=== PATIENT | female | born 1965 ===

== ENCOUNTER 2023-06-08 12:53 | Outpatient (REF) | payer OTHER, SELFPAY ==
--- NOTE | ~2023-06-08 | US_ITS ---
EXAMINATION: NONINVASIVE ASSESSMENT OF THE ARTERY OF THE LEFT LOWER EXTREMITY Javier Karimi MD CLINICAL INFORMATION: Peripheral vascular disease. TECHNIQUE: Left lower extremity duplex ultrasound was performed with velocity measurements and waveform analysis in the common femoral artery, profunda femoris artery, proximal mid and distal superficial femoral arteries, popliteal artery and tibial vessels. This study was performed only at rest. COMPARISON: None available. FINDINGS: Velocities in cm/sec and phasicity as well as the presence of plaque are reported below. LEFT LEG: Moderate plaque present in the common femoral artery posteriorly. A tight stenosis is present in the profunda femoris with marked velocity elevation. A tight stenosis is seen in the mid SFA with velocity accelerations to 299 cm/s. Below this level, flow is monophasic. Common Femoral: 199 Profunda Femoris: 308 Proximal SFA: 120 Mid SFA: 299 Distal SFA: 52 Popliteal: 43 Posterior Tibial: 42 Anterior tibial artery: 14.5 Dorsalis pedis: 18.7 US/US arterial duplex LE LT IMPRESSION: Evidence of peripheral vascular disease with tight stenoses present in the profunda femoris and mid SFA with monophasic flow below this level. CT angiography would be useful for further evaluation.
== END 2023-06-08 12:54 | disposition home or self-care (01) ==
LOC: HO.US 12:53
PROVIDERS: PCP Internal Medicine; Visit Provider Psychiatry & Neurology Neurology
DX: I73.9 Peripheral vascular disease, unspecified (principal)
CPT/HCPCS: 93926

== ENCOUNTER 2023-08-04 11:03 | Outpatient (REF) | payer OTHER, SELFPAY ==
[2023-08-04 13:30] LABS: Blood Urea Nitrogen 20 mg/dL (9-16); Estimated Glomerular Filt Rate > 60
== END 2023-08-04 11:04 | disposition home or self-care (01) ==
LOC: HO.LAB 11:03
PROVIDERS: Visit Provider Psychiatry & Neurology Neurology
DX: I73.9 Peripheral vascular disease, unspecified (principal)
CPT/HCPCS: 36415; 82565; 84520

== ENCOUNTER 2023-08-13 13:49 | Outpatient (REF) | payer OTHER, SELFPAY ==
--- NOTE | ~2023-08-13 | CT_ITS ---
EXAMINATION: CT ANGIOGRAPHY ABDOMEN, PELVIS AND LOWER EXTREMITY RUNOFF WITH CONTRAST CLINICAL INFORMATION: Peripheral arterial disease COMPARISON: None TECHNIQUE: Initial noncontrast localizing hockey scout images were obtained. Timing boluses at the level of the celiac and popliteal arteries were calculated. Subsequently, arterial phase multidetector volumetric imaging was performed through the abdomen, pelvis and bilateral lower extremities following the administration of 100 mL Omnipaque 350 intravenous contrast. No contrast reaction reported Sagittal and coronal reformatted images were obtained on the technologist workstation. After extensive post-processing on a dedicated 3-D workstation, 3-D reformatted images were uploaded to PACS and reviewed as well. This CT examination was performed using dose optimization techniques as appropriate, variously including the following: *Automated exposure control *Adjustment of mA and/or kV according to patient size (this includes techniques or standardized protocols for targeted exams where dose is matched to indication/reason for exam; i.e. extremities or head) *Use of iterative reconstruction technique DLP: 690 mGy-cm FINDINGS: VASCULAR: Heart: Normal in size. No coronary artery calcifications. Abdominal Aorta: Moderate to severe mixed atherosclerotic disease. No dissection or aneurysmal dilation. Normal aortic taper. Mesenteric Arteries: The celiac axis, superior mesenteric artery and inferior mesenteric artery are patent. Renal Artery: Single renal arteries bilaterally. Renal arteries are patent and without stenosis or other vascular anomaly. Right Lower Extremity: Right Common Iliac Artery: Patent. Moderate mixed atherosclerotic disease resulting in no high grade stenosis. Right External Iliac Artery: Patent. Mild non-calcified atherosclerotic disease resulting in no high grade stenosis. Right Internal Iliac Artery: Patent. Common Femoral Artery: Patent. Mild mixed atherosclerotic disease resulting in no high grade stenosis. Superficial Femoral Artery: Patent. Mild mixed atherosclerotic disease resulting in no high grade stenosis. Profunda Femoris: Patent. Popliteal Artery: Patent. Mild mixed atherosclerotic disease resulting in no high grade stenosis. Tibioperoneal Trunk: Patent. Anterior Tibial Artery: Patent. Peroneal Artery: Patent. Posterior Tibial Artery: Patent. Dorsalis Pedis: Patent. Plantar Arch: Patent. Left lower extremity: Left Common Iliac Artery: Patent. Moderate mixed atherosclerotic disease resulting in no high grade stenosis. Left External Iliac Artery: Patent. Mild mixed atherosclerotic disease resulting in no high grade stenosis. Left Internal Iliac Artery: Patent. Common Femoral Artery: Patent. Mild mixed atherosclerotic disease resulting in no high grade stenosis. Superficial Femoral Artery: Severe mixed atherosclerotic disease resulting in multifocal high-grade stenoses in string like opacification. Profunda Femoris: Patent. Popliteal Artery: Patent. Mild mixed atherosclerotic disease resulting in no high grade stenosis. Tibioperoneal Trunk: Patent. Anterior Tibial Artery: Diminutive in caliber and visualized up to the mid to distal tibia fibula, favored to be developmental . Peroneal Artery: Patent. Posterior Tibial Artery: Patent. Dorsalis Pedis: Patent. Plantar Arch: Not well opacified. NONVASCULAR FINDINGS: ABDOMEN/PELVIS: Lung Bases: Scarring versus atelectasis in the lingula. Liver: Homogeneous in attenuation. Normal in size. Gallbladder: Noninflamed. Biliary System: No intrahepatic or extrahepatic biliary dilation. Pancreas: Homogeneous in attenuation. Spleen: Normal in size. Genitourinary: Bilateral kidneys demonstrate symmetric enhancement. No perinephric fluid collection. No renal calculi. No hydroureteronephrosis. Adrenal Glands: Unremarkable. Reproductive: Uterus absent. No solid adnexal masses. Gastrointestinal: The visualized alimentary tract is normal in course. No evidence of obstruction. Appendix: The appendix is seen in its entirety and is unremarkable. Peritoneum: No pneumoperitoneum. No intra-abdominal fluid collection. Lymph Nodes: No pathologically enlarged abdominal or pelvic lymph nodes. Soft Tissues/Musculoskeletal: Multilevel degenerative changes of the lumbar spine. CT/CT angio abd aorta runoff IMPRESSION: VASCULAR: Abdomen/Pelvis: Moderate to severe mixed atherosclerotic disease of the infrarenal aorta. No aneurysm or dissection. Right Lower Extremity: 1. Mild mixed atherosclerotic disease of the iliofemoral vessels without high-grade stenosis. 2. Three-vessel runoff to the foot. 3. Dorsalis pedis and plantar arteries patent. Left Lower Extremity: 1. Mild to mixed atherosclerotic disease of the iliofemoral vessels. 2. High-grade stenoses throughout the superficial femoral artery resulting in string like opacification. 3. Diminutive in caliber anterior tibial artery, likely developmental. 4. Two-vessel runoff to the foot via anterior tibial and peroneal. 5. Dorsalis pedis patent, but plantar arch not well opacified. NONVASCULAR: No acute abdominopelvic findings. Fleischner guidelines were followed.
[2023-08-13] MEDS: iohexoL 350 MG/ML 100 ML INFUS..BTL IV (15:13)
== END 2023-08-13 13:50 | disposition home or self-care (01) ==
LOC: HO.CT 13:49
PROVIDERS: Visit Provider Psychiatry & Neurology Neurology
DX: I73.9 Peripheral vascular disease, unspecified (principal)
CPT/HCPCS: 75635; Q9967

== ENCOUNTER 2025-03-14 15:30 | Outpatient (REF) | payer OTHER, SELFPAY ==
--- OUTSIDE RECORDS SUMMARY | 2025-03-14 16:31 | XMS_ITS | Data Portability ---
Author Organization [place] - [facility], Allergy Address [address] [place] [id number] Care Team Providers Care Airport Operations Specialist Name Role Phone MARIANNA MARTINEZ Primary Care Provider [phone] Assessment No assessment recorded. Plan of Treatment Reminders Order Date Submit Date Provider Last Modified By Organization Details Last Modified Time Details Appointments Establish ed 20 2024 02:40P M ALIZA TAYLOR MD Not available Not available Not available Lab None recorded. Referral None recorded. Procedures None recorded. Surgeries None recorded. Imaging None recorded. Medication Orders None recorded. Patient TargetsNo targets recorded. Patient InstructionsNo instructions recorded. Reason for Referral None Reported. Results Created Date Observation Date Name Description Value Unit Range Abnormal Flag Note LastModifiedBy Organization Detail LastModifiedTime 02/11/20 25 audio gram No observ ation record ed. BARCODE Not Available 2024 10:31:44 Result Notes None recorded. Problems Name Problem SNOMED Code Status Onset Date Resolution Date Notes Provider Name and Address Organization Details Recorded Time Sensorineural hearing loss of bilateral ears 247300510 Active 2024 Marita byrne [place] - [facility] 5 16:05:20 Synkinesis of eyelid 564409524 Active 2024 STEPHANIE PENNINGTON MD [address] [facility], [place], [address] - [facility] 5 16:31:04 Problem Notes None recorded. Procedures Surgical History Date Name Laterality Status Provider Name and Address Organization Details Recorded Time 02/09/2025 Comp Audio with Tymps - 24820 & 23133 completed Marita Dasilva [place] - [facility] 02/09/2025 16:05:13 Imaging Results Imaging Date Name Status LastModified by Organiz ation Details LastModified Time 02/10/2025 audiogram completed BARCODE Information no t available 02/10/2025 10:31:44 Procedure Notes None recorded. Medical Equipment None Reported. Allergies Allergen ID Allergen Name Allergen Category Reaction Reaction Severity Criticality Documentation Date Start Date Code Code System Note Provider Name and Address Organization Details Recorded Time 527904 Celexa medicatio n Not available Not available Not available 02/09/2025 37935 8 RxNorm Shelley byrne [place] - [facility] 15:38:54 Medications Name Sig Start Date Stop Date Status Note LastModified by Organization Details LastModified Time quetiapine 25 mg tablet TAKE 1 TABLET BY MOUTH EVERY NIGHT AT BEDTIME FOR INSOMNIA active Not Available Not Available No t Available atorvastati n 40 mg tablet TAKE 1 TABLET BY MOUTH EVERYDAY AT BEDTIME active Not Available Not Available No t Available cilostazol 100 mg tablet TAKE 1 TABLET BY MOUTH TWICE A DAY active Not Available Not Available No t Available ketoconazol e 2 % shampoo APPLY TO SCALP 2X/WK, LEAVE ON 5 MINUTES THEN WASH OFF active Not Available Not Available No t Available clonazepam 1 mg tablet TAKE 1 TABLET BY MOUTH TWICE A DAY NEEDED active Not Available Not Available No t Available amlodipine 5 mg tablet TAKE 1 TABLET BY MOUTH EVERY DAY active Not Available Not Available No t Available omeprazole 40 mg capsule,del ayed release TAKE 1 CAPSULE BY MOUTH DAILY. TAKE ON AN EMPTY STOMACH, WAIT 30 MIN AND THEN EAT 02/09 completed Not Available Not Available Not Available aspirin 81 mg tablet,nesha yed release TAKE 1 TABLET BY MOUTH EVERY DAY active Not Available Not Available No t Available pantoprazol e 40 mg tablet,nesha yed release TAKE 1 TABLET BY MOUTH EVERY DAY active Not Available Not Available No t Available erythromyci n 5 mg/gram (0.5 %) eye ointment APPLY 1 A SMALL AMOUNT INTO LEFT EYE FOUR TIMES A DAY APPLY TO INCISION SITE FOR 1 WEEK 02/09 completed Not Available Not Available Not Available triamcinolo ne acetonide 0.1 % lotion APPLY TO SCALP TWICE A DAY NEEDED FOR FLARES, DECREASE SYMPTOMS IMPROVE active Not Available Not Available No t Available moxifloxaci n 0.5 % eye drops INSTILL 1 DROP INTO LEFT EYE FOUR TIMES A DAY USE FOR 1 WEEK THEN STOP 02/09 completed Not Available Not Available Not Available Vitals Date Recorded Body height Body weight Provider Name and Address Organization Details Last Updated DateTime 02/09/2025 162.56 cm 12062.63 g Shelley Wallace [place] - [facility] 02/09/2025 16:10:54 Social History None recorded. Functional Status None recorded. Mental Status None recorded. Family History Nothing Reported. Medical History Condition Response Arthritis Y Anxiety Y GERD/Reflux Y High Cholesterol Y Hypertension Y Depression Y Asthma Y Gynecological HistoryNo gynecological history recorded. Obstetrics History GPAL:G 0 P 0 0 0 0 Past Encounters Encounter ID Performer Location Encounter Start Date Encounter Closed Date Diagnosis/Indication Diagnosis SNOMED-CT Code Diagnosis ICD10 Code Diagnosis Note [id number] STEPHANIE PENNINGTON MD [facility] [address] [address] 02/09/2025 15:17:54 02/09/2025 16:30:31 Sensorineural hearing loss of bilateral ears 068329251 H90.3 Audiologic al evaluation results:Ri ght ear:{{Norm al Normal through 2 kHz Mild M oderate* M oderately- severe Sev ere Profou nd}} {{hearing hearing. s loping to a mild slopi ng to a moderate s loping to moderately severe* sl oping to severe slo ping to profound f lat high frequency low frequency mid frequency cookie bite avalos curve}} {{with sen sorineural hearing loss with* cond uctive hearing loss with mixed hearing loss with}} {{excellen t* good fa ir poor no measurable }} word recognitio n.Left ear:{{Norm al Normal through 2 kHz Mild M oderate* M oderately- severe Sev ere Profou nd}} {{hearing hearing. s loping to a mild slopi ng to a moderate s loping to moderately severe* sl oping to severe slo ping to profound f lat high frequency low frequency mid frequency cookie bite avalos curve}} {{with sen sorineural hearing loss with* cond uctive hearing loss with mixed hearing loss with}} {{excellen t* good fa ir poor no measurable }} word recognitio n.Tympanom etry:Right Ear:{{Type A Type A with rounded peak Type A with double peak Type As* Type As with rounded peak Type Ad Type C Type C, shallow & rounded peak Type B Type B with large volume Cou ld not maintain a hermetic seal}}Left Ear:{{Type A* Type A with rounded peak Type A with double peak Type As Type As with rounded peak Type Ad Type C Type C, shallow & rounded peak Type B Type B with large volume Cou ld not maintain a hermetic seal}} Patient's audiogram shows bilateral fairly significan t sensorineu ral hearing loss with {{well maintained * moderate ly reduced po or}} speech discrimina tion. There is enough hearing loss to affect day-to-day hearing performanc e. We discussed in detail the pros and cons of amplificat ion (hearing aids). We discussed the connection between untreated hearing loss and increased risk of dementia, falling and accidents. After full discussion , the patient expressed {{interest * no interest}} in learning more about amplificat ion options.Ac cordingly {{we will set them up for a hearing aid evaluation * I have provided a copy of the audiogram and medical clearance for amplificat ion so the patient can pursue this at their convenienc e I have provided a copy of the audiogram, a list of [facility] hearing aid providers, and medical clearance for amplificat ion so the patient can pursue this at their convenienc e}}. Patient is medically cleared for amplificat ion {{in the right ear in the left ear bilate rally*}}. Synkinesis of eyelid 129 111725 R25.8 Patient has history of left Avalos's palsy and has been left with a fairly significan t synkinesis that affects the left side of her face. She is most bothered by the constant left eyelid squinting that affects her vision. She is interested in learning about options available for treatment of the synkinesis and the ocular squinting. She is interested in meeting with Dr. Taylor in our office to discuss some of these options in more detail, also we will set her up a visit. Health Concerns Section Related Observation LastModified by Organization Detai ls LastModified Time None Recorded Concern Status LastModified by Organization Details LastModified Time None Recorded Advance Directives Directive None Recorded Payers Insurance Date Sequence Insurance Name Policy Number Policy Patterson Covered Member ID Patterson Member ID Guarantor Name 02/09/2025 1 [facility] NET PLAN (MEDICAID HMO) MARISELA Reyes Burton [id number] Delilah Reyes Burton Notes Date Note Type Note Provider Name and Address Organization Details Recorded Time 02/09/2025 text/html Patient comes in for evaluation of hearing loss. Patient has been noticing difficulty hearing in a variety of different listening environments, particularly exacerbated by background noise. Hearing loss has been {{gradual* rapidly progressive}} over a period of {{months years*}}. Patient notes {{no tinnitus* right sided tinnitus left-sided tinnitus nonlocaliz ing tinnitus bilateral tinnitus, right greater than left bilateral tinnitus, left greater than right}}. {{No history of History of*}} {{industrial* [employer] loud music excessive}} noise exposure. Patient comes in for audiometric testing and discussion of possible remedies for hearing loss. In addition, patient had a severe Avalos's palsy back in 2016. Ever since then she has been having troubles with left-sided facial synkinesis. She is particularly troubled by left eye closing when she smiles or chews. She has had Botox injections in the past, but effects were only short-lived. She has had a partial brow lift on the left in the past and has been speaking with a local ophthalmology group about further procedures to remedy her left eyelid droop and squinting. STEPHANIE PENNINGTON MD [address] [place] [address], [phone], [facility] - [facility] 02/09/2025 16:34:01 OBGyn Episode No OBEpisode recorded.
--- OUTSIDE RECORDS SUMMARY | 2025-03-14 16:31 | XMS_ITS | Clinical Summary ---
Author Organization [address] [place] [address] Address [address] [place] [address] Phone Care Team Providers Care Ecotherapist Name Role Phone Aldo Daniels MD Primary Care Provider [phone] Medications amLODIPine (NORVASC) 5 mg tablet TAKE 1 TABLET BY MOUTH EVERY DAY 90 tablet 1 01/19/2025 Active pantoprazole (PROTONIX) 40 mg EC tablet TAKE 1 TABLET BY MOUTH EVERY DAY 90 tablet 1 01/19/2025 Active Encounters Date Type Department Care Team Description 02/20/2025 Telephone Internal Medicine [address] [phone] Aldo Daniels MD PT1(speech&hearing) 02/20/[address] [phone] Aldo Daniels MD PT1(Ophthalmology) from Last 3 Months Surgical History Surgery Date Site/Laterality Comments TUBAL LIGATION PROCEDURE: HISTORICAL TUBAL LIGATION HYSTERECTOMY PROCEDURE: HISTORICAL HYSTERECTOMY COLONOSCOPY 06/12/2020 PROCEDURE: HISTORICAL COLONOSCOPY; COMMENT: polyps UPPER GASTROINTESTINAL ENDOSCOPY 06/12/2020 PROCEDURE: CT UPPER GI ENDOSCOPY PERFORMED; COMMENT: negative, biopsy pending Medical History Medical History Date Comments Allergic rhinitis 01/31/2016 DX:Allergic rh initis Asthma 06/17/2018 DX:Asthma Carpal tunnel syndrome 06/13/2016 DX:Carpal tunnel syndrome Chronic anxiety 12/18/2016 DX:Chronic anxie ty Chronic back pain 09/10/2016 DX:Chronic naeem k pain Chronic hepatitis C (CMS/HCC V24, CMS/HCC V28) 06/08/2018 DX:Chronic hepatitis C (HCC) Degenerative disc disease, lumbar 12/23/2017 DX:Degenerative disc disease, lumbar Depression 07/21/2017 DX:Depression GERD (gastroesophageal reflux disease) 03/18/2016 DX:GERD (gastroesophageal reflux disease) Hyperlipidemia 12/23/2017 DX:Hyperlipidemi a Hypertension 06/17/2018 DX:Hypertension Internal hemorrhoids 03/02/2015 DX:Internal hemorrhoids History of pancreatitis DX:Histo ry of pancreatitis Gastritis DX:Gastritis Tubular adenoma of colon DX:Tubu lar adenoma of colon Family History Relation Name Status Comments Father Mother Social History Tobacco Use Types Packs/Day Years Used Date Smoking Tobacco: Every Day Smokeless Tobacco: Never Alcohol Use Standard Drinks/Week Comments No 0 (1 standard drink = 0.6 oz pur e alcohol) Comments Unknown Sex and Gender Information Value Date Recorded Sex Assigned at Not on file Legal Sex Female 2:16 AM EST Gender Identity Not on file Sexual Orientation Not on file Obstetrics History Last Filed Vital Signs Vital Sign Reading Time Taken Comments Blood Pressure 119/70 01/21/2024 1:46 PM EDT Pulse 92 01/21/2024 1:46 PM EDT Temperature - - Respiratory Rate - - Oxygen Saturation - - Inhaled Oxygen Concentration - - Weight 79.4 kg (175 lb) 01/21/2024 1:46 PM EDT Height 154.9 cm (5' 1 ) 01/21/2024 1:46 PM EDT Body Mass Index 33.07 01/21/2024 1:46 PM EDT Plan of Treatment Upcoming Encounters Date Type Department Care Team (Late st Contact Info) Description 04/13/2025 3:00 PM EDT Office Visit Internal Medicine - [place] [address] [facility] [address] [place] [address] Aldo Daniels MD [address] [facility] [address] [place] [address] Health Maintenance Due Date Last Done Comments DTaP,Tdap,and Td Vaccines (1 - Tdap) 1983 Hepatitis A Vaccines (1 of 2 - Risk 2-dose series) 1983 Cervical Cancer Screening: P ap Smear 1985 Zoster Vaccines (1 of 2) 2014 Pneumococcal Vaccine: 50+ Years (2 of 2 - PPSV23) 02/04/2019 12/10/2018, 07/21/2017 Pneumococcal Vaccine: Pediatrics (0 to 5 Years) and At-Risk Patients (6 to 64 Years) (2 of 2 - PPSV23) 02/04/2019 12/10/2018, 07/21/2017 Cholesterol Screening (Lipid Panel) 10/04/2022 Colorectal Cancer Screening: Colonoscopy 10/04/2022 Depression Screening 10/04/2022 HIV Screening 10/04/2022 Hepatitis C Screening 10/04/2022 Social Influencers of Health Screening 10/04/2022 Hypertension/CHF/CAD Annual BMP Blood Test 10/05/2022 Hepatitis B Vaccines (1 of 3 - Risk 3-dose series) 2024 RSV Immunization Adult Patients (1 - Risk 60-74 years 1-dose series) 2024 COVID-19 Vaccine ( - 2023-2 5 season) 2024 Breast Cancer Screening 03/03/2025 03/03/20 23, 02/27/2022 Influenza Vaccine (Season Ended) 2025 HIB Vaccines Aged Out No longer eligi ble based on patient's age to complete this topic HPV Vaccines Aged Out No longer eligi ble based on patient's age to complete this topic IPV Vaccines Aged Out No longer eligi ble based on patient's age to complete this topic MMR Vaccines Aged Out No longer eligi ble based on patient's age to complete this topic Meningococcal ACWY Vaccine Aged Out N o longer eligible based on patient's age to complete this topic Meningococcal B Vaccine Aged Out No l onger eligible based on patient's age to complete this topic RSV Immunization Patients Under 20 months Aged Out No longer eligible b ased on patient's age to complete this topic Varicella Vaccines Aged Out No longer eligible based on patient's age to complete this topic Procedures Procedure Name Priority Date/Time Associated Diagnosis Comments LUZMA SCREENING DIGITAL Routine 03/03/2023 3:51 PM EDT Encounter for screening mammogram for malignant neoplasm of breast from Last 3 Months or Most Recently Relevant to Health Maintenance Results * LUZMA SCREENING DIGITAL (03/03/2023 3:51 PM EDT) Anatomical Region Laterality Modality Mammography 03/03/2023 12:5 5 PM EDT Narrative 03/03/2023 3:51 PM EDT [facility] Diagnostic Imaging Department [address] [place] [id number] Patient: ??DELILAH MARKS ?/Age/Sex: 1965 - 57 - F Unit#: ??[id number] ? Location/Status: ??SPDIMAM/REG CLI ? Mnemonic/Ordering Site: ??DIGSC/SPMAM Ordering Physician: ??ALDO DANIELS MD Luzma Screening Digital - 03/03/23 - 1335 EXAM: Luzma Screening Digital EXAM DATE AND TIME: 03/03/2023 1:36 PM HISTORY: ??Screening. COMPARISON: ??02/27/22, 06/17/17, 03/19/16 TECHNIQUE: CC and MLO views of both breasts were obtained using full field digital mammography. Bilateral digital breast tomosynthesis was performed in the MLO projection. Computer aided detection with Primary Data 7.2-H and Kato 3D 3.1 was employed. TISSUE DENSITY: c. The breasts are heterogeneously dense, which may obscure small masses. FINDINGS: No suspicious masses, grouped microcalcifications, or areas of architectural distortion are seen. Benign rim calcifications are again seen. Vascular mesha cification is present. The skin is unremarkable. IMPRESSION: Stable mammographic appearance of the breasts. ??No evidence of malignancy is seen. A negative mammogram in the presence of a clinically suspicious palpable abnormality does not preclude the possibility of malignancy or alter the indications for biopsy. BI-RADS: ??Category 2: Benign RECOMMENDATION(S): 1: Routine screening mammogram BILATERAL in 1 year. 23193, [id number] 3342F, 7025F Dictating Physician: ??ROSANGELA MEHTA MD Electronically Signed by: ??ROSANGELA MEHTA MD Dic Date/Time: ??03/03/23 1550 Sign date/Time: ??03/03/23 1551 Procedure Note Rosangela Mehta MD - 11/27/2023 [facility] Diagnostic Imaging Department [address] [place] [address] Patient: SELINAMILYA Amy /Age/Sex: 1965 - 57 - F Unit#: [id number] Location/Status: [facility] Mnemonic/Ordering Site: [facility] Ordering Physician: ALDO DANIELS MD [facility] Screening Digital - 03/03/23 - 1335 EXAM: [facility] Screening Digital EXAM DATE AND TIME: 03/03/2023 1:36 PM HISTORY: Screening. COMPARISON: 02/27/22, 06/17/17, 03/19/16 TECHNIQUE: CC and MLO views of both breasts were obtained using fullfield digital mammography. Bilateral digital breast tomosynthesis was performedin the MLO projection. Computer aided detection with iCAD PowerLook 7.2-H andiCAD ProFound AI 3D 3.1 was employed. TISSUE DENSITY: c. The breasts are heterogeneously dense, which mayobscure small masses. FINDINGS: No suspicious masses, grouped microcalcifications, or areas ofarchitectural distortion are seen. Benign rim calcifications are again seen. Vascularcal cification is present. The skin is unremarkable. IMPRESSION: Stable mammographic appearance of the breasts. No evidence of malignancyis seen. A negative mammogram in the presence of a clinically suspicious palpable abnormality does not preclude the possibility of malignancy or alter the indications for biopsy. BI-RADS: Category 2: Benign RECOMMENDATION(S): 1: Routine screening mammogram BILATERAL in 1 year. 69249, 76814 3342F, 7025F Dictating Physician: ROSANGELA MEHTA MD Electronically Signed by: ROSANGELA MEHTA MD Dic Date/Time: 03/03/23 1550 Sign date/Time: 03/03/23 155 Aldo Daniels MD IMG BI PROCEDURES Final Result from Last 3 Months or Most Recently Relevant to Health Maintenance Insurance MEDICAID - [place] Care Teams Ecotherapist Relationship Specialty Start Date End Date Aldo Daniels MD [address] [facility] [address] [place] [address] PCP - General Internal Medicine 12/08/24
== END 2025-03-14 15:31 | disposition home or self-care (01) ==
LOC: HO.HAP 15:30
PROVIDERS: Visit Provider Otolaryngology
DX: Z46.1 Encounter for fitting and adjustment of hearing aid (principal); H90.3 Sensorineural hearing loss, bilateral
CPT/HCPCS: 92591; V5275

== ENCOUNTER 2025-04-14 13:43 | Outpatient (REF) | payer OTHER, SELFPAY ==
--- OUTSIDE RECORDS SUMMARY | 2025-04-14 13:44 | XMS_ITS | Encounter Summary ---
Author Organization [facility] Address [address] [place] [address] Care Team Providers Care Film Editor Supervisor Name Role Phone Aldo Daniels MD Primary Care Provider [phone] Reason for Visit * Reason Onset Date Comments ER follow up 04/10/2025 Encounter Details Date Type Department Care Team ([facility] st Contact Info) Description 04/10/2025 Telephone Internal Medicine - [place] [address] [place] [phone] Aldo Daniels MD [address] [facility] [address] [place] [address] ER follow up Social History Tobacco Use Types Packs/Day Years Used Date Smoking Tobacco: Never Smokeless Tobacco: Never Alcohol Use Standard Drinks/Week Comments No 0 (1 standard drink = 0.6 oz pur e alcohol) Comments Unknown Sex and Gender Information Value Date Recorded Sex Assigned at Not on file Legal Sex Female 2:16 AM EST Gender Identity Not on file Sexual Orientation Not on file documented as of this encounter Progress Notes * Asha Barbour RN - 04/10/2025 10:01 AM EDT Call to pt # [phone], spoke to pt Pt was prescribed the appropriate medication and the ED. Pt will keep her appt on * Shaniqua Ferrara - 04/10/2025 9:21 AM EDT Patient called and stated that she was in [facility] on 04/08 due to leg pain and couldn't walk or sleep due to the pain and had burning sensation as well and they said it was shingles and would like to be seen johanna because she is in pain and would like to be seen sooner than . Please advise Cb# [phone] documented in this encounter Plan of Treatment Upcoming Encounters Date Type Department Care Team (Late st Contact Info) Description 04/17/2025 2:00 PM EDT [facility]ointment [facility] [address] [phone] documented as of this encounter Visit Diagnoses Not on filedocumented in this encounter Care Teams Film Editor Supervisor Relationship Specialty Start Date End Date Aldo Daniels MD [address] [phone] PCP - General Internal Medicine 12/08/24 documented as of this encounter
== END 2025-04-14 13:44 | disposition home or self-care (01) ==
LOC: HO.HAP 13:43
PROVIDERS: Visit Provider Internal Medicine
DX: Z46.1 Encounter for fitting and adjustment of hearing aid (principal); H90.3 Sensorineural hearing loss, bilateral
CPT/HCPCS: V5011; V5020; V5160; V5261; V5264

== ENCOUNTER 2025-08-02 15:28 | Outpatient (REF) | payer OTHER, SELFPAY ==
--- NOTE | 2025-08-02 15:57 | MHC.AU.HA3 ---
Hearing Instrument Follow-Up- Binaural Date of Visit: 08/02/25 Right Ear: Christiano, Model, Color, Serial Number: Alton Lewis [id number]-[id number] SN: [id number] Color: Erine Duct Layer Repair Warranty: 04/20/2028 Duct Layer Loss and Damage Warranty: 04/20/2028 [facility] Service Plan: 04/14/2026 Battery Size: Rechargeable [employer]/Slim Tube: 1M Earmold/Dome/CShell/SlimTip:canal cshell SN: [id number] Warranty 07/19/2025 Type of Wax Guard: CeruStop Dispensed By: [facility] Date of Fittin04/14/2025 Left Ear: Christiano, Model, Color, Serial Number: Alton Lewis I50-R SN: [id number] Color: Erine Duct Layer Repair Warranty: 04/20/2028 Duct Layer Loss and Damage Warranty: 04/20/2028 [facility] Service Plan: 04/14/2026 Battery Size: Rechargeable [employer]/Slim Tube: 1M Earmold/Dome/CShell/SlimTip: canal cshell SN: [id number] Warranty 07/19/2025 Type of Wax Guard: CeruStop Dispensed By: [facility] Date of Fittin04/14/2025 Follow-Up Summary: Follow up from initial fitting in March. Reportedly had shingles after fitting therefore could not follow up sooner. Reported overall HAs have been good. Noticeable benefit watching television, talking to family members. Cleaned HAs/c-shells. Replaced wax guards. Data logging only 2 hours/day. Encouraged more consistent use. Recommendations: Hearing instrument follow-up or maintenance as needed. Please contact our clinic with any questions or concerns. Diagnosis Code(s): Primary Diagnosis: H90.3 Bilateral Sensorineural Hearing Loss Signature: Provider: Leticia Duffy, [facility]
== END 2025-08-02 15:29 | disposition home or self-care (01) ==
LOC: HO.HAP 15:28
PROVIDERS: PCP Internal Medicine; Visit Provider Otolaryngology
DX: Z13.89 Encounter for screening for other disorder (principal)